=== PATIENT | male | born 1985 | race Caucasian/White ===

== ENCOUNTER 2016-12-17 11:29 | Emergency (ER) | payer OTHER ==
[~2016-12-17] VITALS: Ht 180.3 cm; Wt 100.0 kg
[~2016-12-17 11:29] MED LIST: METO10TA96 PO; ONDA4TAB35 PO; PANT40TA4 PO
[2016-12-17 11:31] VITALS: Ht 180.3 cm; Wt 100.0 kg
[2016-12-17] MEDS ORDERED: ONDANSETRON 4 MG INJ IV STA (11:43)
[2016-12-17] MEDS ORDERED: PANTOPRAZOLE 40 MG INJ IV STA (11:43)
[2016-12-17] MEDS ORDERED: SOD CHLORIDE 0.9% 1,000 ML IV STA (11:43)
[2016-12-17] MEDS ORDERED: HYDROmorphONE 1 MG/ML SYG IV STA (11:43)
[2016-12-17 12:00] LABS: ADD SCAN DIFF NO
[2016-12-17] MEDS ORDERED: OMEP20CA16 PO (12:12)
[2016-12-17] MEDS ORDERED: RANI300T PO (12:14)
[2016-12-17 12:16] LABS: BASOPHILS % 0.3 % (0.0-2.0); EOSINOPHILS # 0.1 10^3/ul (0.0-0.5); EOSINOPHILS % 0.8 % (0.0-7.0); HEMATOCRIT 47.7 % (42.0-52.0); HEMOGLOBIN 15.6 g/dl (14.0-18.0); LYMPHOCYTES # 0.8 10^3/ul (0.8-2.9); LYMPHOCYTES % 8.1 % (15.0-51.0); MEAN CORPUSCULAR HEMOGLOBIN 28.9 pg (29.0-33.0); MEAN CORPUSCULAR HGB CONC 32.7 g/dl (32.0-37.0); MEAN CORPUSCULAR VOLUME 88.5 fl (82.0-101.0); MEAN PLATELET VOLUME 9.1 fl (7.4-10.4); MONOCYTE # 0.6 10^3/ul (0.3-0.9); MONOCYTES % 6.6 % (0.0-11.0); NEUTROPHIL # 7.9 10^3/ul (1.6-7.5); NEUTROPHILS % 83.9 % (39.0-77.0); PLATELET COUNT 339 10^3/UL (140-415); RED BLOOD COUNT 5.39 10^6/ul (4.70-6.10); RED CELL DISTRIBUTION WIDTH 12.7 % (11.5-14.5); WHITE BLOOD COUNT 9.4 10^3/ul (4.8-10.8)
[2016-12-17 12:17] LABS: INR 0.88; PROTIME 11.9 Sec (12.2-14.2); PT RATIO 0.9
[2016-12-17 12:18] LABS: PARTIAL THROMBOPLASTIN TIME 33.8 Sec (25.0-35.0)
[2016-12-17 12:25] LABS: ALANINE AMINOTRANSFERASE 39 IU/L (13-69); ALBUMIN 5.5 g/dl (3.3-4.9); ALBUMIN/GLOBULIN RATIO 1.71; ALKALINE PHOSPHATASE 76 IU/L (42-121); ANION GAP 18 (8-16); ASPARTATE AMINO TRANSFERASE 28 IU/L (15-46); BILIRUBIN,INDIRECT 0.5 mg/dl (0-1.1); BILIRUBIN,TOTAL 0.5 mg/dl (0.2-1.3); BLOOD UREA NITROGEN 10 mg/dl (7-20); CALCIUM 9.8 mg/dl (8.4-10.2); CARBON DIOXIDE 26 mmol/L (21-31); CHLORIDE 104 mmol/L (97-110); CREATININE 0.93 mg/dl (0.61-1.24); GLUCOSE 115 mg/dl (70-220); POTASSIUM 3.8 mmol/L (3.5-5.1); SODIUM 144 mmol/L (135-144); TOTAL PROTEIN 8.7 g/dl (6.1-8.1)
[2016-12-17 12:41] LABS: TROPONIN-I < 0.012 ng/ml (0.00-0.12)
[2016-12-17] MEDS ORDERED: ONDA4TAB14 PO (12:53)
--- NOTE | 2016-12-17 13:04 | ERD ---
ER Documentation Chief Complaint Date/Time DATE: 12/17/16 TIME: 13:01 Chief Complaint ap, n/v x 3 weeks, actively vomiting; dizziness, diarrhea HPI Is a 31-year-old male with ulcer who presents with "ulcer and gastritis". He said that he has had 3 weeks of vomiting and he has been using his ranitidine and omeprazole. He said that he started vomiting blood yesterday. He has upper abdominal pain as well. Upon review of old medical records the patient one previous visit to the ER with admission in July 2015. He does not remember the name of his primary doctor but it appears his GI doctor is Dr. Davis. He has had endoscopy recently. ROS All systems reviewed and are negative except as per history of present illness. Medications Home Meds Active Scripts Ondansetron (Ondansetron Odt) 4 Mg Tab.rapdis, 4 MG PO Q6H Y for NAUSEA AND/OR VOMITING, #30 TAB Prov:ALONA ACKERMAN MD 12/17/16 Reported Medications Ranitidine Hcl* (Ranitidine Hcl*) 300 Mg Tablet, 300 MG PO HS, #30 TAB 12/17/16 Omeprazole* (Omeprazole*) 20 Mg Capsule.dr, 20 MG PO DAILY, #30 CAP 12/17/16 Discontinued Scripts Ondansetron Hcl* (Zofran* ODT) 4 mg -ODT Tab.disper, 4 MG PO Q6H Y for VOMITTING , #21 TAB Prov:CARLTON KAMINSKI 07/20/15 Metoclopramide Hcl* (Metoclopramide Hcl*) 10 Mg Tablet, 10 MG PO Q6H Y for NAUSEA AND OR VOMITING, #15 TAB Prov:CARLTON KAMINSKI. 07/20/15 Pantoprazole* (Pantoprazole*) 40 Mg Tabec, 40 MG PO BID@06,18 for 14 Days Prov:CARLTON KAMINSKI 07/20/15 Allergies Allergies: Coded Allergies: No Known Allergy (Unverified , 12/17/16) PMhx/Soc History of Surgery: No Anesthesia Reaction: No Hx Neurological Disorder: No Hx Respiratory Disorders: No Hx Cardiac Disorders: Yes Hx Psychiatric Problems: No Hx Miscellaneous Medical Probl: No Hx Alcohol Use: No Hx Substance Use: Yes (MARIJUANA) Hx Tobacco Use: No Smoking Status: Current some day smoker FmHx Family History: No diabetes Physical Exam Vitals Vital Signs Date Time Temp Pulse Resp B/P Pulse Ox O2 Delivery O2 Flow Rate FiO2 12/17/16 11:55 Nasal Cannula 2 12/17/16 11:31 97.4 89 18 146/90 97 Physical Exam Const: Moderate distress secondary to pain and nausea Head: Atraumatic Eyes: Normal Conjunctiva ENT: Normal External Ears, Nose and Mouth. Neck: Full range of motion..~ No meningismus. Resp: Clear to auscultation bilaterally Cardio: Regular rate and rhythm, no murmurs Abd: Epigastric tenderness to palpation without rebound or guarding Skin: No petechiae or rashes Back: No midline or flank tenderness Ext: No cyanosis, or edema Neur: Awake and alert Psych: Normal Mood and Affect Result Diagram: 12/17/16 1147 12/17/16 1147 Results 24 hrs Laboratory Tests Test 12/17/16 11:47 White Blood Count 9.410^3/ul Red Blood Count 5.3910^6/ul Hemoglobin 15.6g/dl Hematocrit 47.7% Mean Corpuscular Volume 88.5fl Mean Corpuscular Hemoglobin 28.9pg Mean Corpuscular Hemoglobin Concent 32.7g/dl Red Cell Distribution Width 12.7% Platelet Count 36063^3/UL Mean Platelet Volume 9.1fl Neutrophils % 83.9% Lymphocytes % 8.1% Monocytes % 6.6% Eosinophils % 0.8% Basophils % 0.3% Nucleated Red Blood Cells % 0.0/100WBC Neutrophils # 7.910^3/ul Lymphocytes # 0.810^3/ul Monocytes # 0.610^3/ul Eosinophils # 0.110^3/ul Basophils # 0.010^3/ul Nucleated Red Blood Cells # 0.010^3/ul Prothrombin Time 11.9Sec Prothrombin Time Ratio 0.9 INR International Normalized Ratio 0.88 Activated Partial Thromboplast Time 33.8Sec Sodium Level 144mmol/L Potassium Level 3.8mmol/L Chloride Level 104mmol/L Carbon Dioxide Level 26mmol/L Anion Gap 18 Blood Urea Nitrogen 10mg/dl Creatinine 0.93mg/dl Glucose Level 115mg/dl Calcium Level 9.8mg/dl Total Bilirubin 0.5mg/dl Direct Bilirubin 0.00mg/dl Indirect Bilirubin 0.5mg/dl Aspartate Amino Transf (AST/SGOT) 28IU/L Alanine Aminotransferase (ALT/SGPT) 39IU/L Alkaline Phosphatase 76IU/L Troponin I < 0.012ng/ml Total Protein 8.7g/dl Albumin 5.5g/dl Globulin 3.20g/dl Albumin/Globulin Ratio 1.71 Current Medications Medications (Trade) Dose Ordered Sig/Terrance Route PRN Reason Start Time Stop Time Status Last Admin Dose Admin Sodium Chloride (NS) 1,000 ml @ 1,000 mls/hr Q1H STAT IV 12/17/16 11:43 12/17/16 12:42 DC 12/17/16 12:00 Pantoprazole (Protonix Iv) 40 mg ONCE STAT IV 12/17/16 11:43 12/17/16 11:45 DC 12/17/16 11:59 Hydromorphone HCl (Dilaudid) 1 mg ONCE STAT IV 12/17/16 11:43 12/17/16 11:45 DC 12/17/16 12:00 Ondansetron HCl (Zofran Inj) 4 mg ONCE STAT IV 12/17/16 11:43 12/17/16 11:46 DC 12/17/16 12:00 Procedures/MDM EKG read by me: Rate/Rhythm: Right bundle branch block a rate of 69 Intervals: Normal Impression: Right bundle branch block without ischemia Patient is a 31-year-old male with ulcer and gastritis who presents with vomiting blood. He is well-appearing after Dilaudid and Zofran. He was given 1 L of normal saline as well. His hemoglobin is normal. He has no signs of significant blood loss at this time and his conjunctivae are pink. The patient feels better after Dilaudid and Zofran and I believe outpatient management is appropriate. He does smoke marijuana and I told him to stop smoking this as this could exacerbate his issues. The patient should continue to take ranitidine and omeprazole. The patient will be given a prescription for Zofran but will need to follow-up with the GI doctor within 24 hours for reevaluation. He can return sooner for any worsening symptoms. Departure Diagnosis: Primary Impression: Hematemesis Nausea presence: with nausea Qualified Code: K92.0 - Hematemesis with nausea Additional Impressions: Gastritis Gastritis type: unspecified gastritis Chronicity: acute Gastritis bleeding : with bleeding Qualified Code: K29.01 - Acute gastritis with hemorrhage, unspecified gastritis type Vomiting Vomiting type: unspecified Vomiting Intractability: non-intractable Nausea presence: with nausea Qualified Code: R11.2 - Non-intractable vomiting with nausea, unspecified vomiting type Condition: Fair Patient Instructions: Vomiting (6Y-Adult) Referrals: EL DAVIS MD Additional Instructions: SPECIALIST: YOU HAVE A MEDICAL CONDITION WHICH REQUIRES YOU TO SEE A SPECIALIST WITHIN THE NEXT 1-2 DAYS. PLEASE FOLLOW UP WITH YOUR PRIMARY PHYSICIAN FOR REFFERAL.IF YOU DO NOT HAVE A PRIMARY CARE PHYSICIAN AND/OR YOU CAN NOT AFFORD TO SEE A PHYSICIAN THE FOLLOWING RESOURCES HAVE BEEN SUPPLIED TO YOU. IT IS YOUR RESPONSIBILITY TO BE SEEN BY THE SPECIALIST ALONA ACKERMAN MD Dec 17, 2016 13:04
[2016-12-17 13:06] VITALS: BP 130/68; PULSE 66; RESP 18; TEMP 97.4
== END 2016-12-17 13:08 | disposition home or self-care (01) ==
LOC: E/R 11:29
DX: K92.0 Hematemesis (principal); K29.01 Acute gastritis with bleeding; F17.210 Nicotine dependence, cigarettes, uncomplicated; R42 Dizziness and giddiness
CPT/HCPCS: 80053; 84484; 85025; 85610; 85730; 86850; 86900; 86901; 93005; C9113; J1170; J2405; J7030; 36415; 96374; 96375

== ENCOUNTER 2016-12-31 20:54 | Emergency (ER) | payer OTHER ==
[~2016-12-31] VITALS: Ht 180.3 cm; Wt 96.0 kg
[~2016-12-31 20:54] MED LIST changes: -METO10TA96 PO; +OMEP20CA16 PO; +ONDA4TAB14 PO; -ONDA4TAB35 PO; -PANT40TA4 PO; +RANI300T PO
[2016-12-31 20:58] VITALS: Ht 180.3 cm; Wt 96.0 kg
[2016-12-31] MEDS ORDERED: ONDANSETRON 4 MG INJ IV STA (23:26)
[2016-12-31] MEDS ORDERED: SOD CHLORIDE 0.9% 1,000 ML IV STA (23:26)
[2016-12-31] MEDS ORDERED: METO10TA96 PO (23:46)
[2017-01-01 00:18] LABS: ADD SCAN DIFF NO
[2017-01-01 00:23] LABS: BASOPHIL # 0.1 10^3/ul (0.0-0.1); BASOPHILS % 0.3 % (0.0-2.0); EOSINOPHILS # 0.1 10^3/ul (0.0-0.5); EOSINOPHILS % 0.6 % (0.0-7.0); HEMATOCRIT 45.7 % (42.0-52.0); HEMOGLOBIN 15.2 g/dl (14.0-18.0); LYMPHOCYTES # 1.1 10^3/ul (0.8-2.9); LYMPHOCYTES % 5.8 % (15.0-51.0); MEAN CORPUSCULAR HEMOGLOBIN 29.3 pg (29.0-33.0); MEAN CORPUSCULAR HGB CONC 33.3 g/dl (32.0-37.0); MEAN CORPUSCULAR VOLUME 88.1 fl (82.0-101.0); MEAN PLATELET VOLUME 9.3 fl (7.4-10.4); MONOCYTE # 0.8 10^3/ul (0.3-0.9); MONOCYTES % 4.4 % (0.0-11.0); NEUTROPHIL # 16.7 10^3/ul (1.6-7.5); NEUTROPHILS % 88.4 % (39.0-77.0); PLATELET COUNT 359 10^3/UL (140-415); RED BLOOD COUNT 5.19 10^6/ul (4.70-6.10); RED CELL DISTRIBUTION WIDTH 12.5 % (11.5-14.5); WHITE BLOOD COUNT 18.9 10^3/ul (4.8-10.8)
[2017-01-01 00:43] LABS: ALBUMIN 5.4 g/dl (3.3-4.9); ALBUMIN/GLOBULIN RATIO 1.5; BILIRUBIN,INDIRECT 0.3 mg/dl (0-1.1); BILIRUBIN,TOTAL 0.3 mg/dl (0.2-1.3); CALCIUM 10.4 mg/dl (8.4-10.2); CREATININE 0.91 mg/dl (0.61-1.24); POTASSIUM 3.7 mmol/L (3.5-5.1)
[2017-01-01] MEDS ORDERED: METOCLOPRAMIDE 10 MG INJ IV ONE (01:30)
[2017-01-01] MEDS ORDERED: FAMOTIDINE 20 MG INJ IV STA (01:33)
[2017-01-01 02:17] VITALS: TEMP 97
[2017-01-01] MEDS ORDERED: SOD CHLORIDE 0.9% 1,000 ML IV STA (02:30)
[2017-01-01] MEDS ORDERED: HYDROmorphONE 1 MG/ML SYG IV ONE (02:30)
[2017-01-01] MEDS ORDERED: SOD CHLORIDE 0.9% 100 ML ONE (03:08)
[2017-01-01] MEDS ORDERED: IOHEXOL 300MG/ML 150 ML BTL ONE (03:08)
--- NOTE | 2017-01-01 03:23 | RADRPT ---
PROCEDURE: CT Abdomen and pelvis with contrast. CLINICAL INDICATION: Abdominal pain. TECHNIQUE: CT scan of the abdomen and pelvis with contrast was performed on a multi-detector high -resolution CT scanner. The patient was scanned following the uncomplicated administration of 100 c c of Omnipaque 300 intravenous contrast. Coronal and sagittal reformatted images were obtained from the axial source images. Images were reviewed on a high-resolution PACS workstation. One or more of the following dose reduction techniques were used: - Automated exposure control. - Adjustment of the mA and/or kV according to patient size. - Use of iterative reconstruction technique. Exam CTD/vol = 15.00 mGy. Total exam DLP = 1060.08 mGy-cm. COMPARISON: None. FINDINGS: Evaluation of the lung bases demonstrates mild bibasilar atelectasis. Abdomen: The liver is normal in size. There is no focal mass or dilatation of the biliary tree. T he gallbladder is not distended. The spleen, pancreas and bilateral adrenal glands are within keyshawn l limits. Bilateral kidneys are normal in size with symmetric enhancement. There is no focal mass, hydronephrosis or hydroureter. There is no retroperitoneal adenopathy. The abdominal aorta is of normal caliber. There is no abnormal bowel wall thickening or distension. There is no bowel obstruction or free air . A normal appendix is identified. There is no diverticulosis or diverticulitis. There is no asci [place]. Pelvis: The bladder is unremarkable. The prostate and seminal vesicles are within normal limits. There is no significant pelvic adenopathy or free fluid. Evaluation of the osseous structures demonstrates no suspicious lytic or blastic lesion. IMPRESSION: No acute abnormality identified within the abdomen and pelvis. Mild bibasilar atelectasis. .Sabino Coats MD, MD Date Time Electronically viewed and signed by .Sabino Coats MD, MD on 01/01/2017 03:23 .T/
[2017-01-01] MEDS ORDERED: ONDA4TAB14 PO (04:05)
[2017-01-01] MEDS ORDERED: DIPH1TAB PO (04:05)
[2017-01-01] MEDS ORDERED: HYDR-906 PO (04:05)
[2017-01-01] MEDS ORDERED: CIPR500T4 PO (04:05)
[2017-01-01 04:09] VITALS: BP 110/52; PULSE 68; RESP 16
[2017-01-01] MEDS ORDERED: HYDR-902 PO (04:10)
[2017-01-01] MEDS ORDERED: OMEP40CA6 PO (04:10)
--- NOTE | 2017-01-01 04:14 | ERD ---
ER Documentation Chief Complaint Date/Time DATE: 01/01/17 TIME: 04:12 Chief Complaint abd pain with active vomiting; hx of gastritis HPI This 31-year-old male with a history of gastritis with complaining of pain in the epigastric region with repetitive vomiting today. No bowel or blood in the vomit. No diarrhea. No pain in the back shortness of breath or chest pain. Patient denies any alcohol or NSAID abuse. He says had gastritis for quite some time now and has occasional flareups because eats too much spicy food. Describes the pain as a burning sensation epigastric region without radiation ROS All systems reviewed and are negative except as per history of present illness. Medications Home Meds Active Scripts Hydrocodone/Acetaminophen ([place] 10-325 Tablet) 1 Each Tablet, 1 TAB PO Q6H Y for PAIN, #20 TAB Prov:MIR GARLAND DO 01/01/17 Omeprazole* (Omeprazole*) 40 Mg Capsule., 40 MG PO DAILY, #10 CAP Prov:MIR GARLAND DO 01/01/17 Ondansetron (Ondansetron Odt) 4 Mg Tab.rapdis, 4 MG PO Q6H Y for NAUSEA AND/OR VOMITING, #10 TAB Prov:MIR GARLAND DO 01/01/17 Ondansetron (Ondansetron Odt) 4 Mg Tab.rapdis, 4 MG PO Q6H Y for NAUSEA AND/OR VOMITING, #30 TAB Prov:ALONA ACKERMAN MD 12/17/16 Reported Medications Metoclopramide Hcl* (Metoclopramide Hcl*) Unknown Strength Tablet, 10 MG PO Q6H Y for NAUSEA AND OR VOMITING, TAB 12/31/16 Ranitidine Hcl* (Ranitidine Hcl*) 300 Mg Tablet, 300 MG PO HS, #30 TAB 12/17/16 Omeprazole* (Omeprazole*) 20 Mg Capsule.dr, 20 MG PO DAILY, #30 CAP 12/17/16 Discontinued Scripts Ciprofloxacin Hcl* (Ciprofloxacin Hcl*) 500 Mg Tablet, 500 MG PO BID for 3 Days , TAB Prov:MIR GARLAND DO 01/01/17 Diphenoxylate HCl/Atropine (Lomotil 2.5-0.025 mg Tablet) 1 Each Tablet, 1 TAB PO QID Y for DIARRHEA, #10 TAB Prov:MIR GARLAND DO 01/01/17 Hydrocodone/Acetaminophen ([place] 5-325 Tablet) 1 Each Tablet, 1 TAB PO Q6H Y for PAIN, #7 TAB Prov:MIR GARLAND DO 01/01/17 Allergies Allergies: Coded Allergies: No Known Allergy (Unverified , 12/17/16) PMhx/Soc History of Surgery: No Anesthesia Reaction: No Hx Neurological Disorder: No Hx Respiratory Disorders: No Hx Cardiac Disorders: Yes Hx Psychiatric Problems: No Hx Miscellaneous Medical Probl: No (gastritis) Hx Alcohol Use: No Hx Substance Use: Yes (MARIJUANA) Hx Tobacco Use: No Smoking Status: Never smoker FmHx Family History: No coronary disease Physical Exam Vitals Vital Signs Date Time Temp Pulse Resp B/P Pulse Ox O2 Delivery O2 Flow Rate FiO2 01/01/17 04:09 68 16 110/52 99 Room Air 01/01/17 02:17 97.0 80 16 140/69 100 Room Air 12/31/16 20:58 97.1 85 18 157/95 100 Physical Exam Const: Well-developed, well-nourished Head: Atraumatic, normocephalic Eyes: Normal Conjunctiva, PERRLA, EOMI, normal sclera, no nystagmus ENT: Normal External Ears, Nose and Mouth, moist mucus membranes. Neck: Full range of motion. No meningismus, no lymphadenopathy. Resp: Clear to auscultation bilaterally, no wheezing, rhonchi, rales Cardio: Regular rate and rhythm, no murmurs, S1 S2 present Abd: Soft, mild to moderate epigastric tenderness, non distended. Normal bowel sounds, no guarding or rebound, no pulsitile abdominal masses or bruits Skin: No petechiae or rashes, no ecchymosis , no maculopapular rash Back: No midline or flank tenderness Ext: No cyanosis, or edema, FROM x 4, normal inspection, neurovascularly intact x 4 Neur: Awake and alert, STR 5/5 x 4, sensation intact x 4, no focal findings, cerebellum intact Psych: Normal Mood and Affect Result Diagram: 12/31/16 2340 12/31/16 2340 Results 24 hrs Laboratory Tests Test 12/31/16 23:40 White Blood Count 18.910^3/ul Red Blood Count 5.1910^6/ul Hemoglobin 15.2g/dl Hematocrit 45.7% Mean Corpuscular Volume 88.1fl Mean Corpuscular Hemoglobin 29.3pg Mean Corpuscular Hemoglobin Concent 33.3g/dl Red Cell Distribution Width 12.5% Platelet Count 85826^3/UL Mean Platelet Volume 9.3fl Neutrophils % 88.4% Lymphocytes % 5.8% Monocytes % 4.4% Eosinophils % 0.6% Basophils % 0.3% Nucleated Red Blood Cells % 0.0/100WBC Neutrophils # 16.710^3/ul Lymphocytes # 1.110^3/ul Monocytes # 0.810^3/ul Eosinophils # 0.110^3/ul Basophils # 0.110^3/ul Nucleated Red Blood Cells # 0.010^3/ul Sodium Level 143mmol/L Potassium Level 3.7mmol/L Chloride Level 101mmol/L Carbon Dioxide Level 27mmol/L Anion Gap 19 Blood Urea Nitrogen 14mg/dl Creatinine 0.91mg/dl Glucose Level 141mg/dl Calcium Level 10.4mg/dl Total Bilirubin 0.3mg/dl Direct Bilirubin 0.00mg/dl Indirect Bilirubin 0.3mg/dl Aspartate Amino Transf (AST/SGOT) 28IU/L Alanine Aminotransferase (ALT/SGPT) 46IU/L Alkaline Phosphatase 84IU/L Total Protein 9.0g/dl Albumin 5.4g/dl Globulin 3.60g/dl Albumin/Globulin Ratio 1.50 Lipase 106U/L Current Medications Medications (Trade) Dose Ordered Sig/Terrance Route PRN Reason Start Time Stop Time Status Last Admin Dose Admin Sodium Chloride (NS) 1,000 ml @ 1,000 mls/hr Q1H STAT IV 12/31/16 23:26 01/01/17 00:25 DC 12/31/16 23:55 Ondansetron HCl (Zofran Inj) 4 mg ONCE STAT IV 12/31/16 23:26 12/31/16 23:27 DC 12/31/16 23:55 Metoclopramide HCl (Reglan) 10 mg ONCE ONCE IV 01/01/17 01:30 01/01/17 01:31 DC 01/01/17 01:30 Famotidine 20 mg 20 mg ONCE STAT IV 01/01/17 01:33 01/01/17 01:34 DC 01/01/17 01:46 Sodium Chloride (NS) 1,000 ml @ 1,000 mls/hr Q1H STAT IV 01/01/17 02:30 01/01/17 03:29 DC 01/01/17 02:33 Hydromorphone HCl 1 mg 1 mg ONCE ONCE IV 01/01/17 02:30 01/01/17 02:31 DC 01/01/17 02:33 Sodium Chloride (NS) 100 ml @ ud STK-MED ONCE .ROUTE 01/01/17 03:08 01/01/17 03:09 DC 01/01/17 03:20 Iohexol (Omnipaque 300mg/ ml) 150 ml STK-MED ONCE .ROUTE 01/01/17 03:08 01/01/17 03:09 DC 01/01/17 03:20 Procedures/MDM After IV fluids and Pepcid Reglan Zofran the patient is feeling better in sleep and has not had any vomiting for a few hours now discharged home on pain medication Zofran and omeprazole Departure Diagnosis: Primary Impression: Acute gastritis Gastritis type: unspecified gastritis Gastritis bleeding: without bleeding Qualified Code: K29.00 - Acute gastritis without hemorrhage, unspecified gastritis type Condition: Stable Patient Instructions: Self-Care for Vomiting and Diarrhea, Gastritis (Adult) Referrals: MARCELLE MCCRARY (PCP) MIR GARLAND DO Jan 01, 2017 04:14
[2017-01-01] MEDS ORDERED: MAG355OR14 PO (05:44)
== END 2017-01-01 04:14 | disposition home or self-care (01) ==
LOC: E/R 20:54
DX: K29.00 Acute gastritis without bleeding (principal); R11.10 Vomiting, unspecified
CPT/HCPCS: 36415; 74177; 80053; 83690; 85025; 96361; 96374; 96375; J1170; J2405; J2765; J7030; Q9967; Z7502; Z7610

== ENCOUNTER 2017-01-01 04:36 | Emergency (ER) | payer OTHER ==
[~2017-01-01] VITALS: Ht 152.4 cm; Wt 11.0 kg
[~2017-01-01 04:36] MED LIST changes: +CIPR500T4 PO; +DIPH1TAB PO; +HYDR-902 PO; +HYDR-906 PO; +METO10TA96 PO; +OMEP40CA6 PO
[2017-01-01 04:38] VITALS: Ht 152.4 cm; Wt 11.0 kg
[2017-01-01] MEDS ORDERED: ONDANSETRON 4 MG INJ IV STA (05:13)
[2017-01-01] MEDS ORDERED: HYDROmorphONE 1 MG/ML SYG IV STA (05:13)
[2017-01-01] MEDS ORDERED: FAMOTIDINE 20 MG INJ IV STA (05:13)
[2017-01-01] MEDS ORDERED: METOCLOPRAMIDE 10 MG INJ IV STA (05:13)
--- NOTE | 2017-01-01 05:19 | ERD ---
ER Documentation Chief Complaint Date/Time DATE: 01/01/17 TIME: 05:18 Chief Complaint vomiting; was just DC from ER 30 min ago HPI Space was just seen by me in discharge 30 minutes ago for vomiting and epigastric pain due to gastritis which he has chronically. He said he went home and vomited twice and came back. The patient says his vomit is nonbilious and nonbloody. ROS All systems reviewed and are negative except as per history of present illness. Medications Home Meds Active Scripts Hydrocodone/Acetaminophen ([place] 10-325 Tablet) 1 Each Tablet, 1 TAB PO Q6H Y for PAIN, #20 TAB Prov:MIR GARLAND DO 01/01/17 Omeprazole* (Omeprazole*) 40 Mg Capsule., 40 MG PO DAILY, #10 CAP Prov:MIR GARLAND DO 01/01/17 Ondansetron (Ondansetron Odt) 4 Mg Tab.rapdis, 4 MG PO Q6H Y for NAUSEA AND/OR VOMITING, #10 TAB Prov:MIR GARLAND DO 01/01/17 Ondansetron (Ondansetron Odt) 4 Mg Tab.rapdis, 4 MG PO Q6H Y for NAUSEA AND/OR VOMITING, #30 TAB Prov:ALONA ACKERMAN MD 12/17/16 Reported Medications Metoclopramide Hcl* (Metoclopramide Hcl*) Unknown Strength Tablet, 10 MG PO Q6H Y for NAUSEA AND OR VOMITING, TAB 12/31/16 Ranitidine Hcl* (Ranitidine Hcl*) 300 Mg Tablet, 300 MG PO HS, #30 TAB 12/17/16 Omeprazole* (Omeprazole*) 20 Mg Capsule., 20 MG PO DAILY, #30 CAP 12/17/16 Discontinued Scripts Ciprofloxacin Hcl* (Ciprofloxacin Hcl*) 500 Mg Tablet, 500 MG PO BID for 3 Days , TAB Prov:MIR GARLAND DO 01/01/17 Diphenoxylate HCl/Atropine (Lomotil 2.5-0.025 mg Tablet) 1 Each Tablet, 1 TAB PO QID Y for DIARRHEA, #10 TAB Prov:MIR GARLAND DO 01/01/17 Hydrocodone/Acetaminophen ([place] 5-325 Tablet) 1 Each Tablet, 1 TAB PO Q6H Y for PAIN, #7 TAB Prov:MIR GARLAND DO 01/01/17 Allergies Allergies: Coded Allergies: No Known Allergy (Unverified , 12/17/16) PMhx/Soc History of Surgery: No Anesthesia Reaction: No Hx Neurological Disorder: No Hx Respiratory Disorders: No Hx Cardiac Disorders: Yes Hx Psychiatric Problems: No Hx Miscellaneous Medical Probl: No (gastritis) Hx Alcohol Use: No Hx Substance Use: No Hx Tobacco Use: Yes Smoking Status: Current every day smoker FmHx Family History: No coronary disease Physical Exam Vitals Vital Signs Date Time Temp Pulse Resp B/P Pulse Ox O2 Delivery O2 Flow Rate FiO2 01/01/17 04:38 95.7 60 20 183/107 95 Physical Exam Const: Well-developed, well-nourished Head: Atraumatic, normocephalic Eyes: Normal Conjunctiva, PERRLA, EOMI, normal sclera, no nystagmus ENT: Normal External Ears, Nose and Mouth, moist mucus membranes. Neck: Full range of motion. No meningismus, no lymphadenopathy. Resp: Clear to auscultation bilaterally, no wheezing, rhonchi, rales Cardio: Regular rate and rhythm, no murmurs, S1 S2 present Abd: Soft, mild epigastric tenderness, non distended. Normal bowel sounds, no guarding or rebound, no pulsitile abdominal masses or bruits Skin: No petechiae or rashes, no ecchymosis , no maculopapular rash Back: No midline or flank tenderness Ext: No cyanosis, or edema, FROM x 4, normal inspection, neurovascularly intact x 4 Neur: Awake and alert, STR 5/5 x 4, sensation intact x 4, no focal findings, cerebellum intact Psych: Normal Mood and Affect Results 24 hrs Current Medications Medications (Trade) Dose Ordered Sig/Terrance Route PRN Reason Start Time Stop Time Status Last Admin Dose Admin Hydromorphone HCl (Dilaudid) 1 mg ONCE STAT IV 01/01/17 05:13 01/01/17 05:15 DC Ondansetron HCl (Zofran Inj) 4 mg ONCE STAT IV 01/01/17 05:13 01/01/17 05:15 DC Metoclopramide HCl (Reglan) 10 mg ONCE STAT IV 01/01/17 05:13 01/01/17 05:15 DC Famotidine (Pepcid Iv) 20 mg ONCE STAT IV 01/01/17 05:13 01/01/17 05:15 DC Procedures/MDM Give the patient some Zofran and Reglan observation. When she is not vomiting will discharge him home Departure Diagnosis: Primary Impression: Vomiting Vomiting type: unspecified Vomiting Intractability: non-intractable Nausea presence: with nausea Qualified Code: R11.2 - Non-intractable vomiting with nausea, unspecified vomiting type Condition: Stable MIR GARLAND DO Jan 01, 2017 05:19
[2017-01-01] MEDS ORDERED: MAG355OR14 PO (05:44)
[2017-01-01 06:27] VITALS: BP 135/68; PULSE 82; RESP 20
== END 2017-01-01 06:31 | disposition home or self-care (01) ==
LOC: E/R 04:36
DX: R11.2 Nausea with vomiting, unspecified (principal); F17.210 Nicotine dependence, cigarettes, uncomplicated
CPT/HCPCS: J1170; J2405; J2765; Z7610; 96374; 96375

== ENCOUNTER 2017-04-26 20:36 | Emergency (ER) | payer OTHER ==
[~2017-04-26] VITALS: Ht 180.3 cm; Wt 88.5 kg
[~2017-04-26 20:36] MED LIST changes: -CIPR500T4 PO; -DIPH1TAB PO; -HYDR-902 PO; -HYDR-906 PO; +MAG355OR14 PO; -OMEP40CA6 PO
[2017-04-26 20:45] VITALS: Ht 180.3 cm; Wt 88.5 kg
[2017-04-26] MEDS ORDERED: ONDANSETRON 4 MG INJ IV STA (23:45)
[2017-04-27] MEDS ORDERED: ONDANSETRON (ODT) 4 MG TAB ODT STA (00:02)
--- NOTE | 2017-04-27 00:20 | ERD ---
ER Documentation Chief Complaint Chief Complaint vomiting x 2 months HPI 32-year-old male presenting with a chief complaint of vomiting 2 months. Patient describes blood streaks in nonbilious vomit. Was taken Zofran with moderate relief. No other medications have been taken to relieve the symptoms. No aggravating or alleviating factors. No sick contacts. Describes nausea without abdominal pain. States he has had multiple CTs in the past 2 months. Denies fever, chills, headache, difficulty breathing, chest pain. Patient has no other complaints and describes no other associated manifestations. Nursing notes have been reviewed and are consistent with history given. ROS All systems reviewed and are negative except as per history of present illness. Medications Home Meds Active Scripts Famotidine* (Pepcid*) 20 Mg Tablet, 20 MG PO BID for 4 Days, TAB Prov:ADRY FELICIANO PA-C 04/27/17 Ondansetron (Ondansetron Odt) 4 Mg Tab.rapdis, 4 MG PO Q6H Y for NAUSEA AND/OR VOMITING, #30 TAB Prov:ALONA ACKERMAN MD 12/17/16 Reported Medications Mag Hydrox/Al Hydrox/Simeth (Maalox Advanced Suspension) 355 Ml Oral.susp, 355 ML PO 01/01/17 Metoclopramide Hcl* (Metoclopramide Hcl*) Unknown Strength Tablet, 10 MG PO Q6H Y for NAUSEA AND OR VOMITING, TAB 12/31/16 Ranitidine Hcl* (Ranitidine Hcl*) 300 Mg Tablet, 300 MG PO HS, #30 TAB 12/17/16 Omeprazole* (Omeprazole*) 20 Mg Capsule.dr, 20 MG PO DAILY, #30 CAP 12/17/16 Allergies Allergies: Coded Allergies: No Known Allergy (Unverified , 01/01/17) PMhx/Soc Medical and Surgical Hx: pt denies Surgical Hx History of Surgery: No Anesthesia Reaction: No Hx Neurological Disorder: No Hx Respiratory Disorders: No Hx Cardiac Disorders: Yes Hx Psychiatric Problems: No Hx Miscellaneous Medical Probl: Yes (gastritis) Hx Alcohol Use: No Hx Substance Use: No Hx Tobacco Use: Yes Smoking Status: Current every day smoker Physical Exam Vitals Vital Signs Date Time Temp Pulse Resp B/P Pulse Ox O2 Delivery O2 Flow Rate FiO2 04/26/17 20:45 98.8 101 20 148/75 98 Physical Exam Const: Well-appearing. No acute distress. Head: Normocephalic, Atraumatic. Eyes: Non-injected; No discharge. EOMI and MORENO bilaterally. Ears: Normal External Ears, EACs clear, TM normal bilaterally without erythema. Nose: Normal external nose; no discharge, or sinus tenderness. Oral: No oral edema visualized. Mucous membranes moist and pink. Neck: No cervical lymphadenopathy, or masses palpated. Supple ~ No meningismus. Pulm: Good air movement in upper and lower respiratory tracts. Clear to auscultation bilaterally. No dyspnea or stridor. Cardio: Regular rate and rhythm; No murmurs, gallops or rubs auscultated. Radial pulses 2+ bilaterally. No cyanosis noted. Capillary refill less than 2 seconds. Abd: Normal bowel sounds. Soft, non tender, non distended. MS: Normal motor strength, normal tone with gross examination. Skin: No petechiae or rashes. Good turgor. Back: No midline, flank or CVA tenderness. Ext: No edema. Normal movement of all extremities grossly observed. Neur: Neurovascularly intact bilaterally. Psych: Normal Mood and Affect. Result Diagram: 04/26/17234904/26/172349 Results 24 hrs Laboratory Tests Test 04/26/17 00:45 04/26/17 23:50 Urine Color YELLOW Urine Clarity SLIGHTLY CLOUDY Urine pH 5.0 Urine Specific [place] 1.028 Urine Ketones TRACEmg/dL Urine Nitrite NEGATIVEmg/dL Urine Bilirubin NEGATIVEmg/dL Urine Urobilinogen NEGATIVEmg/dL Urine Leukocyte Esterase NEGATIVELeu/ul Urine Microscopic RBC 2/HPF Urine Microscopic WBC 2/HPF Urine Calcium Oxalate Crystals MANY/HPF Urine Mucus MANY/HPF Urine Hemoglobin NEGATIVEmg/dL Urine Glucose NEGATIVEmg/dL Urine Total Protein 1+mg/dl White Blood Count 6.110^3/ul Red Blood Count 4.9110^6/ul Hemoglobin 13.8g/dl Hematocrit 43.0% Mean Corpuscular Volume 87.6fl Mean Corpuscular Hemoglobin 28.1pg Mean Corpuscular Hemoglobin Concent 32.1g/dl Red Cell Distribution Width 13.2% Platelet Count 32065^3/UL Mean Platelet Volume 9.0fl Neutrophils % 69.0% Lymphocytes % 11.4% Monocytes % 17.9% Eosinophils % 0.7% Basophils % 0.8% Nucleated Red Blood Cells % 0.0/100WBC Neutrophils # 4.210^3/ul Lymphocytes # 0.710^3/ul Monocytes # 1.110^3/ul Eosinophils # 0.010^3/ul Basophils # 0.110^3/ul Nucleated Red Blood Cells # 0.010^3/ul Sodium Level 142mmol/L Potassium Level 4.2mmol/L Chloride Level 103mmol/L Carbon Dioxide Level 28mmol/L Anion Gap 15 Blood Urea Nitrogen 10mg/dl Creatinine 0.99mg/dl Glucose Level 100mg/dl Calcium Level 9.3mg/dl Total Bilirubin 0.2mg/dl Direct Bilirubin 0.00mg/dl Indirect Bilirubin 0.2mg/dl Aspartate Amino Transf (AST/SGOT) 19IU/L Alanine Aminotransferase (ALT/SGPT) 37IU/L Alkaline Phosphatase 75IU/L Total Protein 7.9g/dl Albumin 4.6g/dl Globulin 3.30g/dl Albumin/Globulin Ratio 1.39 Lipase 78U/L Current Medications Medications (Trade) Dose Ordered Sig/Terrance Route PRN Reason Start Time Stop Time Status Last Admin Dose Admin Ondansetron HCl (Zofran Inj) 4 mg ONCE STAT IV 04/26/17 23:45 04/27/17 00:28 DC Ondansetron HCl (Zofran Odt) 4 mg ONCE STAT ODT 04/27/17 00:02 04/27/17 00:03 DC 04/27/17 00:47 Procedures/MDM 32-year-old male presents with a chief complaint of nonbilious vomiting with streaks of blood, nausea, no abdominal pain as described in history and physical examination. Patient received a CT scan at 1 and half months ago that was unremarkable. Labs were obtained today and were unremarkable. I presented the case my attending who agreed outpatient management with follow-up with PCP as most appropriate. Patient will be given Pepcid at discharge. Patient is tolerating p.o. I have spoke with the patient regarding their condition and future management. They have verbally responded that they understand their status and treatment plan. The patients vitals are stable, and their current condition is appropriate for discharge. The patient will be given discharge instructions with return precautions. Departure Diagnosis: Primary Impression: Vomiting Vomiting type: unspecified Vomiting Intractability: non-intractable Nausea presence: with nausea Qualified Code: R11.2 - Non-intractable vomiting with nausea, unspecified vomiting type Condition: Stable Additional Instructions: Follow up with your PCP within the next 1-3 days for a more thorough evaluation and a possible referral to a specialist. Return the the emergency department immediately if symptoms worsen or change. If you have any questions regarding medications, ask your pharmacist or us before you leave. If any adverse reactions occur while taking your medications, discontinue the treatment and return to the emergency department immediately. Take your medications as directed, and complete the entire course of treatment. ADRY FELICIANO PA-C Apr 27, 2017 00:20
[2017-04-27 00:26] LABS: BASOPHIL # 0.1 10^3/ul (0.0-0.1); BASOPHILS % 0.8 % (0.0-2.0); EOSINOPHILS % 0.7 % (0.0-7.0); HEMOGLOBIN 13.8 g/dl (14.0-18.0); LYMPHOCYTES # 0.7 10^3/ul (0.8-2.9); LYMPHOCYTES % 11.4 % (15.0-51.0); MEAN CORPUSCULAR HEMOGLOBIN 28.1 pg (29.0-33.0); MEAN CORPUSCULAR HGB CONC 32.1 g/dl (32.0-37.0); MEAN CORPUSCULAR VOLUME 87.6 fl (82.0-101.0); MONOCYTE # 1.1 10^3/ul (0.3-0.9); MONOCYTES % 17.9 % (0.0-11.0); NEUTROPHIL # 4.2 10^3/ul (1.6-7.5); PLATELET COUNT 272 10^3/UL (140-415); RED BLOOD COUNT 4.91 10^6/ul (4.70-6.10); RED CELL DISTRIBUTION WIDTH 13.2 % (11.5-14.5); WHITE BLOOD COUNT 6.1 10^3/ul (4.8-10.8)
[2017-04-27 00:55] LABS: ALBUMIN 4.6 g/dl (3.3-4.9); ALBUMIN/GLOBULIN RATIO 1.39; BILIRUBIN,INDIRECT 0.2 mg/dl (0-1.1); BILIRUBIN,TOTAL 0.2 mg/dl (0.2-1.3); CALCIUM 9.3 mg/dl (8.4-10.2); CREATININE 0.99 mg/dl (0.61-1.24); POTASSIUM 4.2 mmol/L (3.5-5.1); TOTAL PROTEIN 7.9 g/dl (6.1-8.1)
[2017-04-27 01:42] LABS: ADD UMIC YES; UR ASCORBIC ACID 40 mg/dL (NEGATIVE); UR BILIRUBIN (Dip) NEGATIVE (NEGATIVE); UR BLOOD (Dip) NEGATIVE (NEGATIVE); UR CLARITY SLIGHTLY CLOUDY (CLEAR); UR COLOR YELLOW (YELLOW); UR GLUCOSE (Dip) NEGATIVE (NEGATIVE); UR KETONES (Dip) TRACE mg/dL (NEGATIVE); UR LEUKOCYTE ESTERASE (Dip) NEGATIVE Leu/ul (NEGATIVE); UR MUCUS MANY /HPF (NONE SEEN); UR NITRITE (Dip) NEGATIVE (NEGATIVE); UR RBC 2 /HPF (0-5); UR SPECIFIC GRAVITY (Dip) 1.028 (1.003-1.030); UR TOTAL PROTEIN (Dip) 1+ mg/dl (NEGATIVE); UR UROBILINOGEN (Dip) NEGATIVE (NEGATIVE)
[2017-04-27] MEDS ORDERED: FAMO-96 PO (01:53)
[2017-04-27 02:09] VITALS: BP 132/76; PULSE 100; RESP 14; TEMP 98.7
== END 2017-04-27 02:10 | disposition home or self-care (01) ==
LOC: FTE 20:36
DX: R11.2 Nausea with vomiting, unspecified (principal); F17.210 Nicotine dependence, cigarettes, uncomplicated
CPT/HCPCS: 80053; 81001; 83690; 85025; Z7502; Z7610; 99283